=== PATIENT | female | born 1975 | race Two or more races ===

== ENCOUNTER 2020-03-10 11:55 | Outpatient (CLI) | payer OTHER | END 2020-03-10 12:01 | disposition home or self-care (01) | LOC: SONOGRAMA 11:55 | PROVIDERS: ATTEND Pathology Anatomic Pathology & Clinical Pathology | DX: E04.2 Nontoxic multinodular goiter (principal) ==

== ENCOUNTER 2025-01-10 09:26 | Outpatient (CLI) | payer OTHER | END 2025-01-10 09:30 | disposition home or self-care (01) | LOC: SONOGRAMA 09:26 | PROVIDERS: ATTEND Pathology Anatomic Pathology & Clinical Pathology | DX: D34 Benign neoplasm of thyroid gland (principal); E07.89 Other specified disorders of thyroid; E04.2 Nontoxic multinodular goiter ==